=== PATIENT | male | born 1965 | race Caucasian/White ===

== ENCOUNTER 2018-10-06 15:53 | Emergency (ER) | payer BC ==
[~2018-10-06] VITALS: Ht 188 cm; Wt 95.5 kg
[2018-10-06 15:57] VITALS: TEMP 98.1
[2018-10-06 16:58] VITALS: BP 146/65; PULSE 73
== END 2018-10-06 16:58 | disposition home or self-care (01) ==
LOC: COL.ER 15:53
DX: S40.011A Contusion of right shoulder, initial encounter (principal); S30.0XXA Contusion of lower back and pelvis, initial encounter; W00.0XXA Fall on same level due to ice and snow, initial encounter

== ENCOUNTER 2018-11-13 11:04 | Emergency (ER) | payer BC ==
[~2018-11-13] VITALS: Ht 188 cm; Wt 90.9 kg
[2018-11-13 11:27] VITALS: BP 143/97
[2018-11-13 13:10] VITALS: PULSE 74; TEMP 97.1
== END 2018-11-13 13:10 | disposition home or self-care (01) ==
LOC: COL.ER 11:04
DX: M25.511 Pain in right shoulder (principal); W00.0XXD Fall on same level due to ice and snow, subsequent encounter; Y92.410 Unspecified street and highway as the place of occurrence of the external cause